=== PATIENT | female | born 1955 | race Hispanic/Latino ===

== ENCOUNTER 2017-09-02 07:52 | Inpatient (IN) | payer BC ==
[2017-09-02] MEDS ORDERED: Ondansetron HCl/PF 4 MG/2 ML Vial ONE (08:53)
[2017-09-02 09:02] LABS: ALT (SGPT) 53 U/L (8-55); AST (SGOT) 161 U/L (5-34); Albumin 3.6 g/dL (3.4-4.8); Alkaline Phosphatase 97 U/L (40-150); Anion Gap 21 mmol/L (10-20); BUN (Urea Nitrogen) 68 mg/dL (9.8-20.1); Bilirubin, Total 0.5 mg/dL (0.2-1.2); Calc. Creatinine Clearance 0 mL/min (70-130); Calcium 8.3 mg/dL (7.8-10.44); Carbon Dioxide 21 mmol/L (23-31); Chloride 94 mmol/L (98-107); Estimated GFR-MDRD 7; Globulin 3.9 g/dL (2.4-3.5); Glucose 126 mg/dL (80-115); Potassium 4.1 mmol/L (3.5-5.1); Protein, Total 7.5 g/dL (6.0-8.3); Sodium 132 mmol/L (136-145)
[2017-09-02 09:04] LABS: Band 8 % (5-11); Hemoglobin 11.1 g/dL (12.0-16.0); Hypochromia SLIGHT = 6-15 cells (100X) (0-5/hpf); Lymphocytes 5 % (21-51); MDiff Complete? YES; Mean Corpuscular HGB CONC 34.6 g/dL (32.0-36.0); Mean Corpuscular Hemoglobin 29.5 pg (27.0-31.0); Mean Corpuscular Volume 85.1 fl (81.0-99.0); Mean Platelet Volume 8.5 fL (7.4-10.4); Monocytes 5 % (0-10); Neutrophil 82 % (42-75); PLT Morphology Comment Appears Adequate; Platelet Count 192 thou/uL (130-400); RBC Distribution Width 13.1 % (11.5-14.5); Red Blood Cell (RBC) Count 3.75 mill/uL (4.20-5.40); White Blood Cell (WBC) Count 7.1 thou/uL (4.8-10.8)
--- NOTE | 2017-09-02 10:42 | CT ---
CT BRAIN WITHOUT CONTRAST: Date: 09/02/17 HISTORY: Disorientation. COMPARISON: None. FINDINGS: No acute territorial infarct or hemorrhage. No midline shift or mass effect. Ventricular size and ext ra-axial CSF spaces are normal. Calvarium is intact. Paranasal sinuses and mastoids are clear. IMPRESSION: No acute intracranial abnormality. POS: [facility]
--- NOTE | 2017-09-02 10:50 | CT ---
CT OF THE CERVICAL SPINE: Date: 09/02/17 COMPARISON: None. HISTORY: Headache, nausea, dizziness, neck pain, and bilateral hand weakness. TECHNIQUE: Serial axial CT imaging at 2 mm intervals from skull base through thoracic inlet without contrast. Co mai and sagittal reformatted imaging obtained. FINDINGS: Evaluation for central canal and/or neural foraminal stenosis is limited on routine CT. The imaged pa ranasal sinuses and mastoid air cells are well aerated. The C1 ring is intact. There is moderate dege nerative change at the atlantoaxial interspace. The craniocervical and cervicothoracic junctions appe ar intact. Cervical vertebral body height and alignment is normal. There is no prevertebral soft tissue swelling . C2-3, C3-4, C4-5, and C5-6 levels demonstrate no evidence for central canal or neural foraminal steno sis on the basis of an osseous cause. There is mild disc space narrowing at C5-6, C6-7, and C7-T1 wit h mild anterior osteophyte formation. At C6-7, there is bilateral uncovertebral osteophyte formation, right greater than left, with probabl e mild neural foraminal stenosis on the right. There is no worrisome lytic or blastic bone lesion. Imaged lung apices are unremarkable. IMPRESSION: Cervical spine degenerative change with no osseous cause of severe central canal or neural foraminal stenosis. No acute osseous abnormality. If there are radicular symptoms, nonemergent follow-up cervic al spine MRI may be beneficial. POS: [facility]
[2017-09-02] MEDS ORDERED: Ondansetron HCl/PF 4 MG/2 ML Vial IVP PRN ×3 (13:20→14:26)
[2017-09-02] MEDS ORDERED: Ondansetron ODT 4 MG TAB PO PRN ×3 (13:20→14:26)
[2017-09-02] MEDS ORDERED: Sodium Chloride 0.9% 1,000 ML IV SCH (13:30)
[2017-09-02 13:33] VITALS: BMI 30.7
[2017-09-02] MEDS ORDERED: HumaLOG 300 UNITS/3 ML VIAL SC PRN ×2 (14:26)
[2017-09-02] MEDS ORDERED: Dextrose 50% Abboject 50 ML SYRINGE SLOW IVP PRN (14:26)
[2017-09-02] MEDS ORDERED: Calcium Carbonate 500 MG ChewTAB PO PRN (14:26)
[2017-09-02] MEDS ORDERED: cloNIDine 0.1 MG TAB PO PRN (14:26)
[2017-09-02] MEDS ORDERED: Dextrose 5% in Water 1,000 ML IV PRN (14:26)
[2017-09-02] MEDS ORDERED: hydrALAZINE 20 MG/ML VIAL SLOW IVP PRN (14:26)
[2017-09-02] MEDS: Gabapentin 300 MG CAP PO SCH ×2 (14:41→20:29)
[2017-09-02] MEDS: Heparin 5,000 UNITS/ML VIAL SC SCH ×2 (14:41→20:29)
[2017-09-02] MEDS: Sodium Chloride 0.9% 1,000 ML IV SCH ×2 (14:41→20:27)
[2017-09-02 15:52] LABS: HBCM Index 0.05 S/CO (0-0.79); HBSAg Index 0.74 S/CO (0-0.99); HIV (1/2) Antibody/Antigen Non-Reactive (NonReactive); HIV 1/2 INDEX 0.51 S/CO (<1.00); Hep A IgM AB Non-Reactive (NonReactive); Hep A IgM S/CO 0.14 S/CO (0-0.79); Hep B Surf Ag Non-Reactive S/CO (NonReactive); Hep C IgG Ab Non-Reactive (NonReactive); Hepatitis B Core IGM Abs Non-Reactive (NonReactive)
[2017-09-02 15:58] LABS: Bilirubin Negative (Negative); Blood, Urine Large (Negative); Clarity TURBID (Clear); Glucose, Urine (Dipstick) Negative (Negative); Leukocyte Large (Negative); Nitrite Negative (Negative); Protein, Urine (Dipstick) 100 mg/dL (Neg-Trace); Specific Gravity, Urine 1.011 (1.002-1.036); Urobilinogen 0.2 mg/dL (0.2-1.0); pH, Urine 6.5 (5.0-9.0)
[2017-09-02 16:01] LABS: Hyaline Casts/LPF 0-3 HYALINE CAST LPF (0-3 Hyaline); Pathc Cast-AUWi Flag 0.14 (0-2.49); Yeast-AUWi Flag 62.8 (0-25.0)
[2017-09-02 16:10] LABS: Bacteria/HPF 4+ HPF (None Seen); Yeast-All Forms None Seen HPF (None Seen)
[2017-09-02 16:16] LABS: Creatinine, Urine 68.01 mg/dL (47-110)
--- NOTE | 2017-09-02 16:46 | ULT ---
RENAL SONOGRAM: 09/02/17 HISTORY: Acute renal failure. FINDINGS: The kidneys demonstrate a normal sonographic appearance bilaterally without evidence of a renal mass, renal calculus, or hydronephrosis. No perinephric fluid collection is seen. The right kidney measures 13.7 cm x 4.9 cm with the left kidney measuring 9.6 cm x 5.2 cm. While ther e is discrepancy in renal size, the kidneys otherwise have a normal appearance and exact etiology for size discrepancy is uncertain. The urinary bladder is incompletely distended but otherwise grossly normal in appearance. IMPRESSION: Size discrepancy of the kidneys of uncertain etiology with right kidney larger in size. The kidneys o therwise have a normal sonographic appearance bilaterally, and there is no evidence of hydronephrosis . POS: [facility]
--- NOTE | 2017-09-02 18:22 | HP ---
PRIMARY CARE PHYSICIAN: Dr. Tami Pineda. CHIEF COMPLAINT: Feeling weak, tired, headache, and sore neck. HISTORY OF PRESENT ILLNESS: Ms. Ch is a very pleasant 62-year-old female who has a history of h ypertension and diabetes. She says that about 2 weeks ago on Monday, she began feeling bad. She sta rted having a headache and soreness in her neck and her head was feeling extremely heavy. She says t hat by Monday it got much worse where she could barely hold her head up. 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 She said they were just fall out o f her hands. They were so weak that she could not hold them up and she was dropping them and droppin g her drinks. She had decreased energy and she could barely get through the day at work. She also s ays that on Monday and , she practically slept all day long, which is very unusual for her . She started to have bouts of nausea and says that she could barely keep anything down and she stop ped eating in the last couple of days. She says that she have to figure out what was going on, so adalid rojas went to the emergency room where they did a CT scan of the brain and the C-spine, which were essent ially negative except for some degenerative joint disease; however, on her chemistry panel, her creat inine was 5.7 and GFR was 7, and she says she has never been told she had any kidney disease and in f act she said she had seen her primary care physician, Dr. Pineda in June where she did have lab w ork done and was told everything was okay. The patient is, therefore, being admitted for acute renal failure. REVIEW OF SYSTEMS: CONSTITUTIONAL: There have been no fevers or chills, no night sweats, no weight loss. HEENT: She complains of some headache as well as neck pain and head feeling heavy. No visual change s, no sore throat, no rhinorrhea, no adenopathy. PULMONARY: No hemoptysis, no cough, no wheezing. CARDIOVASCULAR: She denies any chest pain, no shortness of breath, no PND, no orthopnea. GASTROINTESTINAL: She denies any abdominal pain. She did have some nausea, but no vomiting, no diar sonia. GENITOURINARY: She does admit that the last time she urinated was 10:30 yesterday. She denies any h ematuria, no dysuria. MUSCULOSKELETAL: She says she began having some muscle aches a few days ago, but no specific joint p ains. SKIN/INTEGUMENT: She denies any skin changes or rash. PSYCHIATRIC: No symptoms of anxiety or depression. PAST MEDICAL HISTORY: Diabetes mellitus, hypertension, hyperlipidemia, neuropathy and history of sev ere diverticulitis, it sounds like with abscess. PAST SURGICAL HISTORY: She has had carpal tunnel surgery, hysterectomy, and a partial colon resectio n in 1999. ALLERGIES: No known drug allergies. 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 She is a nonsmoker, nondrinker. She is , has two children. Her daughter, Margareth, is her surrogate decision maker and she would like to be FUL L CODE. FAMILY HISTORY: Significant for end-stage renal disease in her mother and her mother of complic ations of diabetes. Father has a heart attack. CURRENT MEDICATIONS: Include Celebrex 200 mg daily, metformin 1000 mg twice a day, lisinopril 20 mg daily, Trulicity 0.75 every week, ranitidine 300 mg daily, gabapentin 800 mg t.i.d., pravastatin 100 mg at bedtime, and tramadol 50 mg t.i.d. PHYSICAL EXAMINATION: GENERAL: She is alert and oriented. She appears to be in no acute distress. NEUROLOGIC: Her pupils are equal, round, and reactive. Extraocular muscles are intact. Her sclerae are anicteric. Throat: There is some mild erythema on her tongue and she appears to have some whit e plaque-like lesions on her tongue. NECK: There is no adenopathy, no bruits. LUNGS: Clear to auscultation. I did not appreciate any wheezing or rales. CARDIOVASCULAR: She has a normal S1, S2. I did not appreciate an S3 or S4. No murmurs or clicks, n o rubs. ABDOMEN: Obese, it is soft, it is nontender, nondistended. Positive for bowel sounds. There is no rebound, no guarding. EXTREMITIES: There is no clubbing or cyanosis, no edema. Her dorsalis pedis pulses are palpable. SKIN AND INTEGUMENT: She did have some mild erythema on her forehead and on the area on her cheeks a nd it was sparing the nasolabial fold. NEUROLOGICALLY: The exam is nonfocal. LABORATORY RESULTS: Sodium is 132, potassium 4.1, chloride is 94, CO2 is 21, BUN of 68, creatinine 5 .73, glucose is 126. White blood cell count 7.1, hemoglobin 11.1, hematocrit is 31.9, platelet count is 192. She had sed rate, which was 80. She again had a CT scan of the brain and cervical spine, w hich were negative. ASSESSMENT AND PLAN: Ms. Ch is a pleasant 62-year-old female who presents to the emergency room with generalized malaise, headache, neck pain and was found to be in acute renal failure. She also has not had significant urine output in the last 24 hours. It is possible that all of her symptoms c ould be related to the above, concerning is that the etiology of which is unclear at this time, it co uld be the result of longstanding diabetes mellitus or some type of infectious process. She also had what appeared to be thrush concerning for possible autoimmune disorder and she did have some erythem a on the face suggesting possible lupus. She is on chronic NSAID therapy as well. She will be admit lucila to telemetry. We will start her on IV fluids to see if prerenal azotemia could be a contributing factor to the acute renal failure. We will also order a renal ultrasound and consult Nephrology. W e will also start the workup by ordering an VALDO and autoimmune panel and HIV given the thrush and hep atitis panel and further workup will be directed by Nephrology. Regarding her hypertension, we will be holding the MOISES inhibitor and treat her with p.r.n. medication such as hydralazine. For diabetes mellitus, since she is now in acute renal failure, metformin will need to be held. We w ill place her on a sliding scale insulin and titrate the medications as needed. Otherwise, further r ecommendations are to follow based on the results of the aforementioned tests.
--- NOTE | 2017-09-02 19:55 | CON ---
DATE OF CONSULTATION: 09/02/2017 CONSULTING PHYSICIAN: Matt Diaz MD REASON FOR CONSULTATION: Acute kidney injury. REASON FOR ADMISSION: Headache, dizziness. HISTORY OF PRESENT ILLNESS: A 62-year-old female with history of type 2 diabetes, hypertension, hype rlipidemia came to the hospital with dizziness and headache for one-week duration. The patient was f eeling very weak and tired, but was still working and came to the hospital and was found to have elev ated creatinine. Nephrology is consulted. The patient denies any nausea, but she is having poor p.o . intake. No fever or chills. No skin rash. PAST MEDICAL HISTORY: Positive for type 2 diabetes, hypertension, hyperlipidemia. PAST SURGICAL HISTORY: Carpal tunnel surgery, hysterectomy. HOME MEDICATIONS: Tramadol, pravastatin, gabapentin, ranitidine, Trulicity, metformin, lisinopril, C elebrex. ALLERGIES: No known drug allergies. SOCIAL HISTORY: No smoking, alcohol, or drug abuse. FAMILY HISTORY: No history of kidney disease. REVIEW OF SYSTEMS: The following complete review of systems was negative, unless otherwise mentioned in the HPI or below: Constitutional: Weight loss or gain, ability to conduct usual activities. Skin: Rash, itching. Eyes: Double vision, pain. ENT/Mouth: Nose bleeding, neck stiffness, pain, tenderness. Cardiovascular: Palpitations, dyspnea on exertion, orthopnea. Respiratory: Shortness of breath, wheezing, cough, hemoptysis, fever or night sweats. Gastrointestinal: Poor appetite, abdominal pain, heartburn, nausea, vomiting, constipation, or diarr hea. Genitourinary: Urgency, frequency, dysuria, nocturia. Musculoskeletal: Pain, swelling. Neurologic/Psychiatric: Anxiety, depression. Allergy/Immunologic: Skin rash, bleeding tendency. PHYSICAL EXAMINATION: GENERAL: This is a well-built female in no apparent distress. VITAL SIGNS: Temperature 98.3, pulse 70, respiratory rate 18, blood pressure 118/63. HEENT: Atraumatic, normocephalic. Oral mucosa is moist. NECK: Supple, no masses. CARDIOVASCULAR: S1, S2 heard. Rate and rhythm regular. RESPIRATORY: Clear. GASTROINTESTINAL: Abdomen is soft. MUSCULOSKELETAL: 1+ edema. DERMATOLOGIC: No skin rash. NEUROLOGIC: Alert, awake. PSYCHIATRIC: Normal mood and affect. LABORATORY AND X-RAY FINDINGS: Hemoglobin is 7.1, potassium is 4.1, BUN is 68, creatinine is 5.73. ASSESSMENT AND PLAN: 1. Acute kidney injury, most likely from volume depletion. 2. Hyponatremia. Agree with hydration. 3. Metabolic acidosis. 4. Mild hypoalbuminemia. 5. Anemia. 6. Pyuria, rule out infection. 7. Proteinuria, most likely diabetic nephropathy. 8. Continue hydration. 9. Elevated creatinine kinase level. We will continue hydration and monitor electrolytes. Monitor urine output. Avoid nephrotoxins. Renally dose all the medicines. 10. Acute kidney injury, most likely related to medications and volume depletion. We will follow. Monitor CK level. Thank you for the consult.
[2017-09-02] MEDS: Docusate 100 MG CAP PO SCH (20:29)
[2017-09-03] MEDS: Sodium Chloride 0.9% 1,000 ML IV SCH ×4 (03:48→20:28)
[2017-09-03 05:16] LABS: #Lymphocytes 0.7 thou/uL (1.20-3.40); #Monocytes 0.8 thou/uL (0.11-0.59); #Neutrophils 4.1 thou/uL (1.40-6.50); %Basophils 0.7 % (0.0-1.0); %Eosinophils 0.9 % (0.0-10.0); %Lymphocytes 12.2 % (21.0-51.0); %Monocytes 13.3 % (0.0-10.0); %Neutrophils 73.1 % (42.0-75.0); Hemoglobin 12.2 g/dL (12.0-16.0); Mean Corpuscular HGB CONC 33.8 g/dL (32.0-36.0); Mean Corpuscular Hemoglobin 30.4 pg (27.0-31.0); Mean Corpuscular Volume 90.1 fl (81.0-99.0); Mean Platelet Volume 8.1 fL (7.4-10.4); Platelet Count 168 thou/uL (130-400); RBC Distribution Width 13.1 % (11.5-14.5); White Blood Cell (WBC) Count 5.6 thou/uL (4.8-10.8)
[2017-09-03 05:34] LABS: Anion Gap 18 mmol/L (10-20); BUN (Urea Nitrogen) 62 mg/dL (9.8-20.1); Calc. Creatinine Clearance 19 mL/min (70-130); Calcium 8.3 mg/dL (7.8-10.44); Carbon Dioxide 18 mmol/L (23-31); Chloride 102 mmol/L (98-107); Estimated GFR-MDRD 10; Glucose 71 mg/dL (80-115); Potassium 3.8 mmol/L (3.5-5.1); Sodium 134 mmol/L (136-145)
[2017-09-03] MEDS: Docusate 100 MG CAP PO SCH ×2 (08:03→20:26)
[2017-09-03] MEDS: Heparin 5,000 UNITS/ML VIAL SC SCH ×3 (08:03→20:26)
[2017-09-03] MEDS: Gabapentin 300 MG CAP PO SCH ×3 (08:03→20:26)
--- NOTE | 2017-09-03 11:48 | PDOC.PN ---
- Subjective Encounter Start Date: 09/03/17 Encounter Start Time: 11:47 Ms. Ch was seen in follow-up of acute renal failure. She says the neck pain has improved. She is still feeling very fatigued. No new complaints. - Objective Resuscitation Status: Resuscitation Status FULL:Full Resuscitation MAR Reviewed: Yes Vital Signs & Weight: Vital Signs (12 hours) Temp Pulse Resp BP Pulse Ox 09/03/17 08:15 99.3 F 82 18 09/03/17 08:03 99.3 F 82 18 101/58 L 89 L 09/03/17 05:00 99.5 F 85 18 120/78 95 09/03/17 00:00 99.6 F 83 20 117/66 91 L Weight Weight 200 lb 6.4 oz I&O: 09/02/17 09/03/17 09/04/17 06:59 06:59 06:59 Intake Total 300 Output Total 800 Balance -500 Result Diagrams: 09/03/17 05:01 09/03/17 05:01 Additional Labs: Accuchecks 09/03/17 09/03/17 09/02/17 05:42 04:48 20:46 POC Glucose 103 68 L 93 09/02/17 16:32 POC Glucose 93 Phys Exam - Physical Examination HEENT: PERRLA Respiratory: no wheezing, no rales, no rhonchi, clear to auscultation bilateral Cardiovascular: RRR, no significant murmur, no rub Gastrointestinal: soft, non-tender, positive bowel sounds Musculoskeletal: no edema Dx/Plan (1) Acute renal failure Status: Acute (2) Rhabdomyolysis due to statin therapy Code(s): M62.82 - RHABDOMYOLYSIS Status: Acute (3) Diabetes mellitus type 2 in obese Code(s): E11.69 - TYPE 2 DIABETES MELLITUS WITH OTHER SPECIFIED COMPLICATION; E66.9 - OBESITY, UNSPECIFIED Status: Chronic (4) Hypertension Code(s): I10 - ESSENTIAL (PRIMARY) HYPERTENSION Status: Chronic - Plan * Acute renal failure- this is likely from volume depletion as well as Rhabdomyolysis from Pravastatin- will continue IV hydration, and Pravastatin has been discontinued * HTN- blood pressure is stable * DM- blood glucose is stable * Will continue to monitor renal function, and CK.
--- NOTE | 2017-09-03 14:11 | PRG ---
DATE OF SERVICE: 09/03/2017 SUBJECTIVE: Patient was seen and examined at bedside and overnight events noted. Patient denies any shortness of breath or chest pain or palpitation. No history of nausea or vomiting or diarrhea or f ever or chills or cramps. PHYSICAL EXAMINATION: GENERAL: This is a well-built female in no apparent distress. VITAL SIGNS: Temperature 98.3, pulse 80, respiratory rate 18, blood pressure 101/58. HEENT: Atraumatic, normocephalic. Oral mucosa is moist. NECK: Supple. CARDIOVASCULAR: S1, S2 heard. Rate and rhythm regular. RESPIRATORY: Clear to auscultation. GASTROINTESTINAL: Abdomen is soft. MUSCULOSKELETAL: No tenderness. No edema. DERMATOLOGIC: No skin rash. NEUROLOGIC: Alert and awake and oriented x3. No focal neurologic deficits. Moving all the extremit ies. PSYCHIATRIC: Mood and affect normal. LABORATORY DATA: Potassium is 3.8, BUN is 62, creatinine is 4.3 from 5.7 yesterday. ASSESSMENT AND PLAN: 1. Acute kidney injury secondary to most likely from volume depletion with good adequate improvement with IV hydration. Plan is to continue on hydration as tolerated. 2. Metabolic acidosis, better. 3. Pyuria. Follow up cultures. 4. Proteinuria, most likely diabetic nephropathy. 5. Elevated CK level. Monitor CK level which is slightly better for 2600 from 3900 yesterday. The patient is feeling much better. Creatinine is better. CK level is better. Continue hydration a s tolerated. Monitor cardiorespiratory status closely. We will follow. Avoid nephrotoxins at this stage including NSAIDs and MOISES inhibitor.
[2017-09-03] MEDS: Acetaminophen 325 MG TAB PO PRN (16:09)
[2017-09-04] MEDS: Sodium Chloride 0.9% 1,000 ML IV SCH ×5 (02:13→23:57)
[2017-09-04 07:55] LABS: Anion Gap 11 mmol/L (10-20); BUN (Urea Nitrogen) 47 mg/dL (9.8-20.1); Calc. Creatinine Clearance 26 mL/min (70-130); Calcium 8.6 mg/dL (7.8-10.44); Carbon Dioxide 24 mmol/L (23-31); Chloride 109 mmol/L (98-107); Estimated GFR-MDRD 15; Glucose 102 mg/dL (80-115); Potassium 3.7 mmol/L (3.5-5.1); Sodium 140 mmol/L (136-145)
[2017-09-04] MEDS: Heparin 5,000 UNITS/ML VIAL SC SCH ×3 (08:35→19:55)
[2017-09-04] MEDS: Docusate 100 MG CAP PO SCH ×2 (08:36→19:55)
[2017-09-04] MEDS: Gabapentin 300 MG CAP PO SCH ×3 (08:36→19:55)
--- NOTE | 2017-09-04 09:06 | PDOC.PN ---
- Subjective Encounter Start Date: 09/04/17 Encounter Start Time: 09:04 Ms. Ch is feeling better today. she still has some neck soreness, otherwise ok - Objective Resuscitation Status: Resuscitation Status FULL:Full Resuscitation MAR Reviewed: Yes Vital Signs & Weight: Vital Signs (12 hours) Temp Pulse Resp BP BP Pulse Ox 09/04/17 07:50 98.5 F 75 18 134/73 92 L 09/04/17 03:51 98.9 F 74 16 118/66 92 L 09/03/17 23:57 99.7 F H 76 16 129/67 92 L Weight Weight 199 lb 12.8 oz I&O: 09/03/17 09/04/17 09/05/17 06:59 06:59 06:59 Intake Total 300 2241 Output Total 800 900 Balance -500 1341 Result Diagrams: 09/03/17 05:01 09/04/17 07:29 Additional Labs: Accuchecks 09/04/17 09/04/17 09/03/17 05:09 00:02 20:28 POC Glucose 86 118 H 89 09/03/17 09/03/17 16:50 11:04 POC Glucose 102 117 H Phys Exam - Physical Examination HEENT: PERRLA Respiratory: no wheezing, no rales, no rhonchi, clear to auscultation bilateral Cardiovascular: RRR, no significant murmur, no rub Gastrointestinal: soft, non-tender, no distention, positive bowel sounds Musculoskeletal: no edema Dx/Plan (1) Acute renal failure Status: Acute (2) Rhabdomyolysis due to statin therapy Code(s): M62.82 - RHABDOMYOLYSIS Status: Acute (3) Diabetes mellitus type 2 in obese Code(s): E11.69 - TYPE 2 DIABETES MELLITUS WITH OTHER SPECIFIED COMPLICATION; E66.9 - OBESITY, UNSPECIFIED Status: Chronic (4) Hypertension Code(s): I10 - ESSENTIAL (PRIMARY) HYPERTENSION Status: Chronic - Plan * Acute renal failure- improving, continue IV hydration- Lisinopril, and Celebrex are on hold * Rhabdomyolysis- due to Pravastatin- continue to hold this medication - CK is improving * HTN- blood pressure is stable * DM- blood glucose is stable- Metformin is on hold.
[2017-09-04] MEDS: Acetaminophen 325 MG TAB PO PRN (10:04)
--- NOTE | 2017-09-04 11:45 | PRG ---
DATE OF SERVICE: 09/04/2017 SUBJECTIVE: This is a 62-year-old female being seen for CKD. The patient denies any nausea, vomitin g, or chest pain. OBJECTIVE: GENERAL: The patient is awake, alert. VITAL SIGNS: Afebrile, pulse 75, breathing 16, blood pressure 118/66. GENERAL APPEARANCE AND MENTAL STATUS: Fair. HEAD/NECK: Normocephalic. Atraumatic. EYES: EOMI. No deformity. EARS: Clear. No ulcers. NOSE: Intact. No lesions. MOUTH: Clear. No discharge. THROAT: Clear. No exudate. LUNGS: Clear. No crackles. CARDIAC: S1, S2. No rub. ABDOMEN: Benign. BS+. GENITALIA/RECTUM: Cantu absent. BACK/EXTREMITIES: Edema 0+ Ulcer- NEUROLOGICAL: Alert and motor intact. SKIN: Rash- Bruise- LYMPHATICS: Edema- Ulcer- LABORATORY: Hemoglobin 12.2, creatinine 3.19. ASSESSMENT AND RECOMMENDATIONS: 1. Acute kidney injury with chronic kidney disease, improved. 2. Hypertension, stable. 3. Anemia, stable. 4. The patient is nonoliguric. No indication for dialysis at this time.
--- NOTE | 2017-09-04 13:37 | PQF ---
DATE: 09-04-17 ATTN: DR. TAYLOR LAZO Please exercise your independent, professional judgment in responding to the clarification form. Clinical indicators are provided on the bottom of this form for your review Please check appropriate box(s): [ X ] UTI [ ] Contaminated urine specimen without UTI [ ] Other diagnosis [ ] Unable to determine In addition, please specify: Present on Admission (POA): [ ] Yes [ ] No [ X ] Unable to determine For continuity of documentation, please document condition throughout progress notes and discharge summary. Thank You. CLINICAL INDICATORS - SIGNS / SYMPTOMS / LABS URINE: 09-02-17: URINE PROTEIN: 100 H URINE BLOOD: LARGE H UR LEUKOCYTE ESTERASE: LARGE H URINE WBC: GREATER THAN 50- TNTC H UR SQUAMOUS EPITH CELLS: 4-6 H URINE BACTERIA: 4+ H CONSULT NOTE DR. SOLO 09-02-17: PYURIA, RULE PUT INFECTION. TEMP: 09-03-17: 99.5, 99.6, 100.7, 100.2, 99.7 RISK FACTORS: H&P: ACUTE RENAL FAILURE, HX OF DM 2, HTN, SHE ALSO HAS NOT HAD SIGNIFICANT URINE OUTPUT IN THE LAST 24 HRS. TREATMENT: ( MAR) (ER) IVF (This form is maintained as a part of the permanent medical record) 2014 [employer] All Rights Reserved [place] [email or web address] Office: [phone] [place]
[2017-09-04 13:43] LABS: ANA Symphony (Qualitative) Negative (Negative); dsDNA IgG Antibody Less than 0.5 IU/mL (<10 Negative)
[2017-09-05] MEDS: Sodium Chloride 0.9% 1,000 ML IV SCH ×3 (03:42→11:23)
[2017-09-05 05:55] LABS: Anion Gap 12 mmol/L (10-20); BUN (Urea Nitrogen) 33 mg/dL (9.8-20.1); Calc. Creatinine Clearance 35 mL/min (70-130); Carbon Dioxide 20 mmol/L (23-31); Chloride 113 mmol/L (98-107); Estimated GFR-MDRD 21; Glucose 120 mg/dL (80-115); Potassium 3.4 mmol/L (3.5-5.1); Sodium 142 mmol/L (136-145)
[2017-09-05] MEDS: Acetaminophen 325 MG TAB PO PRN ×2 (08:49→14:43)
[2017-09-05] MEDS: Heparin 5,000 UNITS/ML VIAL SC SCH ×3 (08:49→21:16)
[2017-09-05] MEDS: Docusate 100 MG CAP PO SCH ×2 (08:50→21:14)
[2017-09-05] MEDS: Gabapentin 300 MG CAP PO SCH ×3 (08:50→21:16)
[2017-09-05] MEDS ORDERED: Cyclobenzaprine 10 MG TAB PO SCH (09:15)
--- NOTE | 2017-09-05 11:57 | PDOC.PN ---
- Subjective Encounter Start Date: 09/05/17 Encounter Start Time: 07:20 Pt seen for followup re: acute renal failure. Reports chronic neck pain, feels like muscle pain. - Objective Resuscitation Status: Resuscitation Status FULL:Full Resuscitation MAR Reviewed: Yes Vital Signs & Weight: Vital Signs (12 hours) Temp Pulse Resp BP BP Pulse Ox 09/05/17 08:00 98.9 F 69 16 09/05/17 07:34 98.9 F 69 16 127/64 95 09/05/17 04:48 99.0 F 66 16 140/77 96 09/05/17 00:59 98.8 F 64 16 134/67 94 L Weight Weight 199 lb 14.4 oz I&O: 09/04/17 09/05/17 09/06/17 06:59 06:59 06:59 Intake Total 2241 4670 300 Output Total 900 1350 Balance 1341 3320 300 Result Diagrams: 09/03/17 05:01 09/05/17 05:22 Additional Labs: Accuchecks 09/05/17 09/05/17 09/04/17 11:05 05:40 19:51 POC Glucose 137 H 109 101 09/04/17 16:48 POC Glucose 152 H EKG Reviewed by me: Yes (Tele: NSR) Phys Exam - Physical Examination Constitutional: NAD HEENT: PERRLA, moist MMs, sclera anicteric, oral pharynx no lesions Neck: no nodes, no JVD, supple, full ROM Respiratory: no wheezing, no rales, no rhonchi, clear to auscultation bilateral Cardiovascular: RRR, no rub Gastrointestinal: soft, non-tender, no distention, positive bowel sounds Mild tenderness over neck, ? muscle spasm Neurological: moves all 4 limbs Psychiatric: normal affect, A&O x 3 Dx/Plan (1) Acute renal failure Status: Acute Comment: Creatinine improving (2.36 today), nephrology following. Likely due to rhabdomyolysis. (2) UTI (urinary tract infection) Status: Acute Comment: start ceftriaxone (3) Rhabdomyolysis due to statin therapy Code(s): M62.82 - RHABDOMYOLYSIS Status: Acute Comment: Improving, statin discontinued (4) Diabetes mellitus type 2 in obese Code(s): E11.69 - TYPE 2 DIABETES MELLITUS WITH OTHER SPECIFIED COMPLICATION; E66.9 - OBESITY, UNSPECIFIED Status: Chronic Comment: Continue accuchecks, insulin sliding scale (5) Hypertension Code(s): I10 - ESSENTIAL (PRIMARY) HYPERTENSION Status: Chronic Comment: Monitor vital signs, titrate antihypertensives as needed. - Plan * . Review of Systems - Review of Systems Constitutional: negative: fever, chills, sweats, weakness, malaise Respiratory: negative: Cough, Shortness of Breath, Hemoptysis, SOB with Excertion, Pleuritic Pain, Wheezing Cardiovascular: negative: chest pain, palpitations, orthopnea, paroxysmal nocturnal dyspnea, edema, light headedness Gastrointestinal: negative: Nausea, Vomiting, Abdominal Pain, Diarrhea, Constipation, Melena, Hematochezia Genitourinary: negative: Dysuria, Frequency, Incontinence, Hematuria, Retention Musculoskeletal: Neck Pain. negative: Shoulder Pain, Arm Pain, Back Pain, Hand Pain, Leg Pain, Foot Pain - Medications/Allergies Allergies/Adverse Reactions: Allergies Allergy/AdvReac Type Severity Reaction Status Date / Time No Known Allergies Allergy Verified 09/02/17 13:36 Medications: Current Medications Acetaminophen (Tylenol) 650 mg PO Q4H PRN PRN Reason: Headache/Fever or Pain Last Admin: 09/05/17 08:49 Dose: 650 mg Calcium Carbonate (Tums) 1,000 mg PO Q4H PRN PRN Reason: Heartburn or Indigestion Clonidine (Catapres) 0.1 mg PO Q6H PRN PRN Reason: Systolic BP > 180 Cyclobenzaprine HCl (Flexeril) 10 mg PO NOW [facility] Stop: 09/05/17 13:00 Last Admin: 09/05/17 10:05 Dose: 10 mg Dextrose/Water (Dextrose 50%) 25 gm SLOW IVP PRN PRN PRN Reason: Hypoglycemia Docusate Sodium (Colace) 100 mg PO BID [facility] Last Admin: 09/05/17 08:50 Dose: 100 mg Gabapentin (Neurontin) 300 mg PO TID [facility] Last Admin: 09/05/17 08:50 Dose: 300 mg Glucagon (Glucagon) 1 mg IM PRN PRN PRN Reason: Hypoglycemia Heparin Sodium (Porcine) (Heparin) 5,000 units SC TID [facility] Last Admin: 09/05/17 08:49 Dose: 5,000 units Hydralazine HCl (Apresoline) 10 mg SLOW IVP Q4H PRN PRN Reason: Systolic BP > 180 Dextrose/Water (D5w) 1,000 mls @ 0 mls/hr IV .Q0M PRN; As Directed PRN Reason: Hypoglycemia Sodium Chloride (Normal Saline 0.9%) 1,000 mls @ 150 mls/hr IV .Q6H40M [facility] Last Admin: 09/05/17 11:23 Dose: 1,000 mls Insulin Human Lispro (Humalog) 0 units SC .MODERATE SLIDING SC PRN PRN Reason: Moderate Correctional Scale Last Admin: 09/04/17 17:22 Dose: 2 unit Insulin Human Lispro (Humalog) 0 units SC .BEDTIME SLIDING SC PRN PRN Reason: Bedtime Correctional Scale Ondansetron HCl (Zofran Odt) 4 mg PO Q6H PRN PRN Reason: Nausea/Vomiting Ondansetron HCl (Zofran) 4 mg IVP Q6H PRN PRN Reason: Nausea/Vomiting Dulaglutide [ (Trulicity] 0.75 Mg) 0 each SC Q7D [facility]
--- NOTE | 2017-09-05 11:59 | PRG ---
DATE OF SERVICE: 09/05/2017 SUBJECTIVE: The patient is a 62-year-old female being seen for acute kidney injury. The patient denies any nausea, vomiting or chest pain. OBJECTIVE: GENERAL: Patient is awake, alert. VITAL SIGNS: Afebrile, pulse 69, breathing 16, blood pressure is 127/64. GENERAL APPEARANCE AND MENTAL STATUS: Fair. HEAD/NECK: Normocephalic. Atraumatic. EYES: EOMI. No deformity. EARS: Clear. No ulcers. NOSE: Intact. No lesions. MOUTH: Clear. No discharge. THROAT: Clear. No exudate. LUNGS: Clear. No crackles. CARDIAC: S1, S2. No rub. ABDOMEN: Benign. BS+. GENITALIA/RECTUM: Cantu absent. BACK/EXTREMITIES: Edema 0+ Ulcer- NEUROLOGICAL: Alert and motor intact. SKIN: Rash- Bruise- LYMPHATICS: Edema- Ulcer- LABORATORY: creatinine 2.3. ASSESSMENT AND RECOMMENDATIONS: 1. Acute kidney injury, improved. 2. Hypertension, stable. 3. Anemia, stable. 4. Chronic kidney disease stage 4, stable. 5. Hypokalemia. Recommend high potassium diet. MTDD
[2017-09-05] MEDS ORDERED: cefTRIAXone\\ROCEPHIN 1 GM in Sodium Chloride 0.9% 100 ML IVPB SCH (13:30)
[2017-09-05] MEDS ORDERED: cefTRIAXone\\ROCEPHIN 1 GM, Syringe 0.4 ML in Sterile Water 9.6 ML SLOW IVP SCH (15:00)
[2017-09-06] MEDS: Sodium Chloride 0.9% 1,000 ML IV SCH ×2 (01:36→08:12)
[2017-09-06 06:17] LABS: Anion Gap 13 mmol/L (10-20); BUN (Urea Nitrogen) 23 mg/dL (9.8-20.1); Calc. Creatinine Clearance 49 mL/min (70-130); Calcium 7.9 mg/dL (7.8-10.44); Carbon Dioxide 21 mmol/L (23-31); Chloride 112 mmol/L (98-107); Estimated GFR-MDRD 30; Glucose 93 mg/dL (80-115); Potassium 3.5 mmol/L (3.5-5.1); Sodium 142 mmol/L (136-145)
[2017-09-06] MEDS: Gabapentin 300 MG CAP PO SCH (08:11)
[2017-09-06] MEDS: Heparin 5,000 UNITS/ML VIAL SC SCH (08:11)
[2017-09-06] MEDS: Docusate 100 MG CAP PO SCH (08:12)
[2017-09-06] MEDS ORDERED: Nitrofurantoin Monohyd/M-Cryst 100 MG CAP PO SCH ×2 (09:30→21:00)
[2017-09-06] MEDS ORDERED: Cyclobenzaprine 10 MG TAB PO SCH ×2 (09:30→21:00)
[2017-09-06] MEDS ORDERED: Cipro 250 MG TAB PO SCH ×2 (09:30→20:00)
[2017-09-06] MEDS: Acetaminophen 325 MG TAB PO PRN (10:03)
[2017-09-06 11:27] VITALS: BP 141/61; TEMP 98.6
--- NOTE | 2017-09-06 13:57 | PRG ---
DATE OF SERVICE: 09/06/2017 SUBJECTIVE: A 62-year-old female being seen for acute kidney injury. The patient denies any nausea, vomiting, or chest pain. OBJECTIVE: GENERAL: Patient is awake, alert. VITAL SIGNS: Afebrile, pulse 64, breathing at 16, blood pressure 120/73. GENERAL APPEARANCE AND MENTAL STATUS: Fair. HEAD/NECK: Normocephalic. Atraumatic. EYES: EOMI. No deformity. EARS: Clear. No ulcers. NOSE: Intact. No lesions. MOUTH: Clear. No discharge. THROAT: Clear. No exudate. LUNGS: Clear. No crackles. CARDIAC: S1, S2. No rub. ABDOMEN: Benign. BS+. GENITALIA/RECTUM: Cantu absent. BACK/EXTREMITIES: Edema 0+ Ulcer- NEUROLOGICAL: Alert and motor intact. SKIN: Rash- Bruise- LYMPHATICS: Edema- Ulcer- LABORATORY: Creatinine 1.71. ASSESSMENT AND RECOMMENDATIONS: 1. Acute kidney injury with chronic kidney disease stage 3, stable. 2. Hypertension, stable. 3. Anemia, stable. 4. Metabolic acidosis, stable. No indication for dialysis. The patient will follow up to see Dr. Patrick martinez in 3-4 days.
--- NOTE | 2017-09-06 14:14 | DIS ---
DATE OF ADMISSION: 09/02/2017 DATE OF DISCHARGE: 09/06/2017 PRIMARY CARE PROVIDER: Tami Pineda M.D. DISCHARGE DIAGNOSES: 1. Acute renal failure. 2. Urinary tract infection. 3. Muscle spasms. CONDITION OF PATIENT ON THE DAY OF DISCHARGE: Stable. I assessed Ms. Ch on the day of discharg e. She denies any chest pain or shortness of breath. Vital signs are stable. S1 and S2 are heard, regular. Lungs are clear to auscultation bilaterally CONSULTATIONS DURING THIS HOSPITALIZATION: Nephrology, Dr. Schaefer. DISCHARGE MEDICATIONS: Flexeril 10 mg 2 times a day as needed, ciprofloxacin 250 mg 2 times a day fo r 5 more doses, Trulicity 0.75 mg subcutaneously every week, gabapentin 800 mg 3 times a day, pravast atin 100 mg at bedtime, ranitidine 300 mg daily, tramadol 50 mg 3 times a day, metformin, lisinopril, and Celebrex were discontinued. HOSPITAL COURSE: Ms. Ch is a pleasant 62-year-old lady, who was admitted to [facility] on 09/02/2017 for urinary tract infection as well as acute renal failure. She was see n by Nephrology Service. She received intravenous fluids. Renal ultrasound on 09/02/2017 showed siz e discrepancy of the kidneys of uncertain etiology with right kidney larger in size. There was no ev idence of hydronephrosis. Kidneys, otherwise, had a normal sonographic appearance bilaterally. Her creatinine improved to 1.71 on the day of discharge, down from 5.73 on 09/02/2017. She was seen by Nephrology Service and has been cleared for discharge. Metformin, lisinopril, and celecoxib schuyler nue to be on hold. Urine cultures grew Escherichia coli that was resistant to ampicillin, but was otherwise sensitive to other antibiotics. She is being discharged home on ciprofloxacin at a renal adjusted dose. On the day of discharge, she has sodium 142, potassium 3.5, blood urea nitrogen 23, and creatinine 1. 71. She also had muscle spasms in her neck, which improved with Flexeril. Many thanks for allowing me to participate in your patient's care. Please feel free to contact me wi th any questions or concerns. DISCHARGE DESTINATION: Home. TOTAL AMOUNT OF TIME SPENT COORDINATING THIS DISCHARGE: 33 minutes.
[2017-09-07] MEDS ORDERED: Dulaglutide [Trulicity] 0.75 MG SC SCH (09:00)
== END 2017-09-06 13:09 | disposition home or self-care (01) | DRG 683 ==
LOC: SCSER 07:52 → 2SE 13:03
PROVIDERS: ADMIT Internal Medicine; ATTEND Internal Medicine
DX: N17.9 Acute kidney failure, unspecified (principal); E87.2 Acidosis; E11.22 Type 2 diabetes mellitus with diabetic chronic kidney disease; N39.0 Urinary tract infection, site not specified; E87.1 Hypo-osmolality and hyponatremia; M62.82 Rhabdomyolysis; E87.6 Hypokalemia; D64.9 Anemia, unspecified; I12.9 Hypertensive chronic kidney disease with stage 1 through stage 4 chronic kidney disease, or unspecified chronic kidney disease; N18.3 Chronic kidney disease, stage 3 (moderate); B96.20 Unspecified Escherichia coli [E. coli] as the cause of diseases classified elsewhere; M62.838 Other muscle spasm
CPT/HCPCS: 36415; 36416; 70450; 72125; 76770; 80048; 80053; 80074; 81003; 81015; 82550; 82570; 84156; 84443; 85025; 85652; 86038; 86225; 87077; 87086; 87186; 87389; 93005; 96361; 96374; A4216; J0696; J1644; J2405

== ENCOUNTER 2021-07-16 09:54 | Outpatient (CLI) | payer MEDICARE, OTHER | END 2021-07-16 09:55 | disposition home or self-care (01) | LOC: BICMAMMO 09:54 | PROVIDERS: ATTEND Family Medicine | DX: Z12.31 Encounter for screening mammogram for malignant neoplasm of breast (principal) | CPT/HCPCS: 77063; 77067 ==

== ENCOUNTER 2022-07-27 10:30 | Outpatient (CLI) | payer OTHER | END 2022-07-27 10:31 | disposition home or self-care (01) | LOC: BICMAMMO 10:30 | PROVIDERS: ATTEND Family Medicine | DX: Z12.31 Encounter for screening mammogram for malignant neoplasm of breast (principal) | CPT/HCPCS: 77063; 77067 ==

== ENCOUNTER 2023-07-31 | Outpatient (CLI) | payer OTHER | END 2023-07-31 12:06 | disposition home or self-care (01) | DX: Z12.31 Encounter for screening mammogram for malignant neoplasm of breast (principal) ==

== ENCOUNTER 2024-05-07 11:07 | Outpatient (CLI) | payer OTHER | END 2024-05-07 11:08 | disposition home or self-care (01) | LOC: BICMAMMO 11:07 | PROVIDERS: ATTEND Family Medicine | DX: Z78.0 Asymptomatic menopausal state (principal); M85.88 Other specified disorders of bone density and structure, other site | CPT/HCPCS: 77080 ==